=== PATIENT | male | born 1990 | race Caucasian/White ===

== ENCOUNTER 2017-09-04 07:30 | Emergency (ER) | payer OTHER ==
--- NOTE | 2017-09-04 17:59 | UC ---
Doug Aldana Stephanie, scribed for Bashir Bermudez MD on 09/04/17 at 0829 . General HPI - HPI Summary HPI Summary: The pt is a 27 y/o M presenting to with c/o diarrhea that began on 09/01/17. Symptoms include occasional cramping over the abd. He states his diarrhea stopped 24 hours ago. The pt denies blood or mucus in the stool. He denies recent traveling or recent sick contacts. The pt denies recent abx use. The pt can take oral fluids such as Gatorade and pediolite. - History of Current Complaint Chief Complaint: UCGeneralIllness Stated Complaint: VOMITING/DIARRHEA Time Seen by Provider: 09/04/17 08:02 Hx Obtained From: Patient Onset/Duration: Sudden Onset, Lasting Days - 3, Still Present Timing: Constant Current Severity: Mild Pain Intensity: 3 Associated Signs & Symptoms: Positive: Abdominal Pain, Diarrhea - Allergy/Home Medications Allergies/Adverse Reactions: Allergies Allergy/AdvReac Type Severity Reaction Status Date / Time No Known Allergies Allergy Verified 09/04/17 08:07 PMH/Surg Hx/FS Hx/Imm Hx Respiratory History: Asthma - Surgical History Surgical History: None - Family History Known Family History: Positive: Other - asthma - Social History Occupation: Student Lives: Dormitory/Roommates Alcohol Use: Occasionally Substance Use Type: Marijuana Smoking Status (MU): Never Smoked Tobacco Review of Systems Constitutional: Negative Skin: Negative Eyes: Negative ENT: Negative Cardiovascular: Negative Gastrointestinal: Abdominal Pain, Diarrhea Genitourinary: Negative Motor: Negative Neurovascular: Negative Musculoskeletal: Negative Neurological: Negative Psychological: Negative Is Patient Immunocompromised?: No All Other Systems Reviewed And Are Negative: Yes Physical Exam - Summary Physical Exam Summary: VITAL SIGNS: Reviewed. GENERAL: Patient is a well developed and nourished M who is lying comfortable in the stretcher. Patient is not in any acute respiratory distress. HEAD AND FACE: Normocephalic EYES: PERRLA, EOMI x 2. EARS: Hearing grossly intact. MOUTH: Oropharynx within normal limits. NECK: Supple, trachea is midline, no adenopathy, no JVD, no carotid bruit. CHEST: Symmetric, no tenderness at palpation LUNGS: Clear to auscultation bilaterally. No wheezing or crackles. CVS: Regular rate and rhythm, S1 and S2 present, no murmurs or gallops appreciated. ABDOMEN: Soft, non-tender. Increased bowel sounds. No abdominal abnormal pulsations. EXTREMITIES: Full ROM in all major joints, no edema, no cyanosis or clubbing. NEURO: Alert and oriented x 3. No acute neurological deficits. Speech is normal and follows commands. SKIN: Dry and warm Triage Information Reviewed: Yes Vital Signs: Initial Vital Signs Temp 99.2 F 09/04/17 07:39 Pulse 92 09/04/17 07:39 Resp 16 09/04/17 07:39 BP 146/79 09/04/17 07:39 Pulse Ox 100 09/04/17 07:39 Vital Signs Reviewed: Yes Course/Dx - Course Course Of Treatment: The pt is a 27 y/o M presenting to with c/o diarrhea that began on 09/01/17. Symptoms include occasional cramping over the abd. He states his diarrhea stopped 24 hours ago. The pt denies blood or mucus in the stool. He denies recent traveling or recent sick contacts. The pt denies recent abx use. The pt can take oral fluids such as Gatorade and pedialite w/o any nausea or vomiting. Patient is 27 y/o male here with watery diarrhea for the last 3 days. There is no blood or mucus. No history of antibiotic use thus low suspicion for C dif. No abdominal pain only cramping right before BM. No fever or chills for the last 24 hours. No nausea or vomiting for the last 24 hours. He continues to drink plenty of Gatorade and pedialyte. Stool cultures send to the lab. He was given a prescription for lomotil. I discussed all the findings and test results with the patient. Patient was instructed to return to the emergency room immediately if any of the symptoms return or worsens. Plan of care was discussed with the patient and understands and agrees. All questions were answered at patient satisfaction. He was instructed if symptoms worsen he will go to the ED for further assessment. He understands and agrees. - Differential Dx - Multi-Symptom Provider Diagnoses: elevated blood pressure without diagnosis of HTN. diarrhea Discharge - Sign-Out/Discharge Documenting (check all that apply): Discharge - Discharge Plan Condition: Stable Disposition: HOME Prescriptions: Diphenoxylat/Atrop 2.5-0.025M* [Lomotil TAB*] 1 tab PO QID PRN #10 tab MDD 4 PRN Reason: Diarrhea Patient Education Materials: Acute Diarrhea (ED) Referrals: [facility] [Outside] Additional Instructions: Take medications as instructed Increase your fluid intake Return to the UC if symptoms worsen FOLLOW UP WITH YOUR PRIMARY CARE PROVIDER WITHIN ONE WEEK FOR HIGH BLOOD PRESSURE NOTED TODAY. - Billing Disposition and Condition Condition: STABLE Disposition: HOME The documentation as recorded by the Doug thomson Stephanie accurately reflects the service I personally performed and the decisions made by me, Bashir Bermudez MD.
== END 2017-09-04 08:17 | disposition home or self-care (01) ==
LOC: UCEAST 07:30
DX: R19.7 Diarrhea, unspecified (principal); R03.0 Elevated blood-pressure reading, without diagnosis of hypertension; J45.909 Unspecified asthma, uncomplicated
CPT/HCPCS: 83630; 87045; 87046; 87077; 87493; 87899; 99202; G0463